=== PATIENT | female | born 1985 | race Caucasian/White ===

== ENCOUNTER 2023-02-06 22:30 | Day surgery (SDC) | payer BC, SELFPAY ==
--- NOTE | ~2023-02-06 | US_ITS ---
EXAMINATION: PELVIC ULTRASOUND - CLINICAL INFORMATION: History vaginal bleeding. Evaluate for torsion. Positive hCG. COMPARISON: None TECHNIQUE: Transabdominal and transvaginal imaging of the uterus was performed utilizing ervin scale and color doppler technique, with spectral analysis. FINDINGS: Small focus of fluid adjacent to the thickened and ill-defined endometrium. This focus measures 5.0 mm, which if traffic representative of a gestational sac would correspond to gestational age of 5 weeks, 0 days. No yolk sac or pole is identified. Left ovary not seen. Right ovary normal in size and appearance measuring 2.9 x 2.6 x 2.4 cm. Normal arterial and venous waveforms present within the right ovary. No free fluid. US/US OB pelvic and transvaginal IMPRESSION: Heterogeneous ill-defined endometrium with nonspecific focus of fluid along the left lateral aspect of the endometrium, entirely nonspecific possibly traffic representative of a pseudogestational sac or gestational sac. In the case of the latter, this would correspond to a gestational age of 5 weeks, 0 days. Regarding the ill-defined endometrium, it is possible that this represent adenomyosis or leiomyomatous change. Incomplete with retained products of conception is also a consideration. Please correlate with serial hCG levels and short interval follow-up pelvic ultrasound in one week, or sooner if clinically indicated.
--- NOTE | ~2023-02-06 | US_ITS ---
EXAMINATION: PELVIC ULTRASOUND - CLINICAL INFORMATION: History vaginal bleeding. Evaluate for torsion. Positive hCG. COMPARISON: None TECHNIQUE: Transabdominal and transvaginal imaging of the uterus was performed utilizing ervin scale and color doppler technique, with spectral analysis. FINDINGS: Small focus of fluid adjacent to the thickened and ill-defined endometrium. This focus measures 5.0 mm, which if service support representative of a gestational sac would correspond to gestational age of 5 weeks, 0 days. No yolk sac or pole is identified. Left ovary not seen. Right ovary normal in size and appearance measuring 2.9 x 2.6 x 2.4 cm. Normal arterial and venous waveforms present within the right ovary. No free fluid. US/US pelvic ovarian doppler IMPRESSION: * Heterogeneous ill-defined endometrium with nonspecific focus of fluid along the left lateral aspect of the endometrium, entirely nonspecific possibly service support representative of a pseudogestational sac or gestational sac. In the case of the latter, this would correspond to a gestational age of 5 weeks, 0 days. Regarding the ill-defined endometrium, it is possible that this represent adenomyosis or leiomyomatous change. Incomplete with retained products of conception is also a consideration. Please correlate with serial hCG levels and short interval follow-up pelvic ultrasound in one week, or sooner if clinically indicated.
[2023-02-06 22:33] VITALS: BP 158/75; PULSE 87; RESP 18; TEMP 36.6; O2SAT 99; BMI 29.0
[2023-02-06 22:50] LABS: MANUAL DIFF FLAG NO
[2023-02-06 22:55] LABS: Basophils Percent Auto 0.2 % (0-2); Eosinophils Absolute Auto 0.1 X10*3/uL (0.0-0.4); Eosinophils Percent Auto 0.4 % (0-4); Hematocrit 27.5 % (37.0-47.0); Hemoglobin 7.3 g/dl (12.0-16.0); Imm Gran Pct Auto 0.5 % (0.0-0.4); Lymphocytes Absolute Auto 0.7 X10*3/uL (1.2-4.9); Mean Corpuscular HGB Conc 26.5 g/dl (31.0-35.0); Mean Corpuscular Hemoglobin 17.5 pg (27.0-33.0); Mean Corpuscular Volume 66.1 fL (80.0-98.0); Mean Platelet Volume 8.7 fL (9.4-12.3); Monocytes Absolute Auto 1.1 X10*3/uL (0.1-1.2); Monocytes Percent Auto 5.9 % (2-11); Neutrophils Absolute Auto 16.3 x10*3/uL (2.0-8.3); Platelet Count 320 X10*3/uL (160-400); Red Blood Count 4.16 X10*6/uL (4.20-5.50); Red Cell Distribution Width 18.7 % (11.0-16.0); White Blood Count 18.3 X10*3/uL (4.8-10.8)
[2023-02-06 23:09] LABS: Anion Gap 12 (12-20); Blood Urea Nitrogen 13 mg/dL (9-16); Calcium 9.1 mg/dL (8.4-10.2); Carbon Dioxide 26 mmol/L (22-29); Chloride 106 mmol/L (96-108); Creatinine Clr Calc Pharmacy 134.6; Estimated Glomerular Filt Rate > 60; Glucose Random 125 mg/dL (60-115); Sodium 140 mmol/L (135-145)
[2023-02-06 23:55] VITALS: BP 129/60; PULSE 77; RESP 18; TEMP 37.2; O2SAT 99
--- NOTE | 2023-02-06 23:55 | ED_ITS ---
HPI - Female Genitourinary General Chief complaint: OB Stated complaint: bleeding heavily from period, SOB Time Seen by Provider: 02/06/23 23:53 Source: patient Mode of arrival: ambulatory Limitations: no limitations History of Present Illness HPI Narrative: 37-year-old female A1 presents with complaints of severe lower abdominal pain, vaginal bleeding, fatigue, malaise, nausea, vomiting, near syncopal episod es x3 days. Patient reports lower abdominal cramping severe in nature worse to RLQ. Patient reports heavy vaginal bleeding, patient is soaking through multiple pads a day, completely, saturated through 3 pads the past few hours. Reports passing a huge dark red blood clot. Patient tells me she is not on control and she does not think this is are normal. Because it came early. Patient does not think she is , not on control however. Related Data Allergies Allergy/AdvReac Type Severity Reaction Status Date / Time Unable to Assess Allergy Unverified 02/06/23 23:53 Review of Systems Review of Systems: Constitutional : No Fever, No Chills ENT/Mouth : No sore throat, No Rhinorrhea Eyes: No Eye Pain, No Redness Cardiovascular : No Chest Pain, No SOB Respiratory : No Cough, No Sputum, No Wheezing Gastrointestinal : positive Nausea, No Vomiting, No Diarrhea, + abdominal pain, Genitourinary : positive irregular bleeding, No Dysuria, No Urinary Frequency, + pelvic pain Musculoskeletal : No Myalgias Skin : No rash Neuro : No Weakness, No Headache Psych : No Anxiety/Panic, No Depression Heme/Lymph: No bruising, No Lymphadenopathy Endocrine : No Polyuria, No Polydipsia All other systems reviewed and are negative Yes all other systems are reviewed and are negative [facility] Past Medical History Attestation statement: The following information was validated with the patient. Source: old records reviewed and nursing notes reviewed Social History Social History Advance Directives: No Advance Directives Information Provided: No Physical Exam Vital Signs: Vital Signs: Last Vital Signs Temp 98.9 F 02/06/23 23:55 Pulse 77 02/06/23 23:55 Resp 18 02/06/23 23:55 BP 129/60 02/06/23 23:55 Pulse Ox 99 02/06/23 23:55 O2 Del Method Room Air 02/06/23 23:55 BMI result Body Mass Index 29.0 vss Appearance: Alert.? Oriented X3.? No acute distress.? Patient appears very uncomfortable Head: Normocephalic, atraumatic, no step-offs or deformities Eyes: Pupils equal, round and reactive to light.? CVS: Normal heart rate and rhythm.? Pulses normal.? Respiratory: No respiratory distress.? Breath sounds normal.? Abdomen: Soft and nontender.? Skin: Skin warm and dry.? Normal skin color.? Normal skin turgor.? Extremities: No lower extremity edema.? No calf ttp. 5/5 strength to bilateral upper and lower extremities Sensative: Large amount of bright red blood in vaginal canal with large clots. Cervical os may be slightly open and there is evident bleeding coming from the cervical os. Significant cervical motion tenderness bilaterally worse on the right-hand side. Neuro: Oriented X 3.? No motor deficit.? No sensory deficit. CN 2-12 intact Course Reevaluation(s) Reevaluation #1: Patient's CBC with elevated white blood cell count, and acute blood loss anemia likely secondary to vaginal bleeding, hemoglobin 7.3, repeat hemoglobin 7.2, hematocrit 27.5 initially now 26.6. Chemistry with no acute electrolyte abnormalities requiring intervention. Beta hCG of 704. Ultrasound was called in for a stat ultrasound of ovarian Doppler in pelvic and transvaginal. Patient evidently uncomfortable ordered morphine, Zofran and fluids. Due to patient's microcytic anemia suspected to be secondary to acute vaginal bleeding will order 2 units of packed red blood cells, type and screen pending. ABO Rh also pending. Time: 00:33 Reevaluation #2: Patient will likely need suction D&C Time: 00:41 Medications Administered Generic Name Dose Route Start Last Admin Trade Name Freq PRN Reason Stop Dose Admin Sodium Chloride 1,000 mls @ 999 mls/hr 02/07/23 00:30 02/07/23 00:31 Ns IV 02/07/23 01:30 999 mls/hr .Q1H1M LEBRON Administration Discontinued Medications Generic Name Dose Route Start Last Admin Trade Name Freq PRN Reason Stop Dose Admin Morphine Sulfate 4 mg 02/07/23 00:25 02/07/23 00:30 Morphine Sulfate 4 Mg/Ml Cartridge IVPUSH 02/07/23 00:26 4 mg ONCE ONE Administration Protocol Ondansetron HCl 4 mg 02/07/23 00:25 02/07/23 00:30 Ondansetron Hcl 4 Mg/2 Ml Vial IVPUSH 02/07/23 00:26 4 mg ONCE ONE Administration Medical Decision Making Medical Decision Making [facility] Narrative: 0614 37-year-old female presents with heavy vaginal bleeding for the past 3 days. History of heavy menses however bleeding more than usual. Physical exam significant forLarge amount of bright red blood in vaginal canal with large clots. Cervical os may be slightly open and there is evident bleeding coming from the cervical os. Significant cervical motion tenderness bilaterally worse on the right-hand side. Concerns for miscarriage versus ruptured ovarian cyst versus menometrorrhagia menorrhagia. Will rule out miscarriage, torsion, ectopic . Will also rule out electrolyte abnormalities, acute blood loss anemia. Unlikely this is an acute abdomen. Low suspicion for appendicitis. Plan labs, urine, hCG, ultrasound pelvic and transvaginal. Patient may require transfusion. Differential Diagnosis Differential Diagnoses: The differential diagnosis associated with the presentation includes Concerns for miscarriage versus ruptured ovarian cyst versus menometrorrhagia menorrhagia. Will rule out miscarriage, torsion, ectopic . Will also rule out electrolyte abnormalities, acute blood loss anemia. Unlikely this is an acute abdomen. Low suspicion for appendicitis. Admission/Observation Consideration of admission/observation: Escalation of care including admission/observation considered Possible Consult Healthcare Provider Management of the patient was discussed with: Yarn Twister Lab Data [facility] Lab Attestation statement: I reviewed the patient's lab results. 02/06/23 22:44 02/06/23 22:44 Labs: Lab Results 02/06/23 02/06/23 02/07/23 Range/Units 22:44 22:44 00:22 WBC 18.3 H 17.5 H (4.8-10.8) X10*3/uL RBC 4.16 L 4.06 L (4.20-5.50) X10*6/uL Hgb 7.3 L 7.2 L (12.0-16.0) g/dl Hct 27.5 L 26.6 L (37.0-47.0) % MCV 66.1 L 65.5 L (80.0-98.0) fL MCH 17.5 L 17.7 L (27.0-33.0) pg MCHC 26.5 L 27.1 L (31.0-35.0) g/dl RDW 18.7 H 18.7 H (11.0-16.0) % Plt Count 320 307 (160-400) X10*3/uL MPV 8.7 L 8.5 L (9.4-12.3) fL Immature Gran % (Auto) 0.5 H 0.5 H (0.0-0.4) % Neut % (Auto) 89.0 H 91.5 H (45-73) % Lymph % (Auto) 4.0 L 3.4 L (20-40) % [place] % (Auto) 5.9 4.2 (2-11) % Eos % (Auto) 0.4 0.2 (0-4) % Baso % (Auto) 0.2 0.2 (0-2) % Lymph # (Auto) 0.7 L 0.6 L (1.2-4.9) X10*3/uL [place] # (Auto) 1.1 0.7 (0.1-1.2) X10*3/uL Eos # (Auto) 0.1 0.0 (0.0-0.4) X10*3/uL Baso # (Auto) 0.0 0.0 (0.0-0.2) X10*3/uL Abs Immat Gran (auto) 0.10 H 0.09 H (0.00-0.03) X10*3/uL Absolute Neuts (auto) 16.3 H 16.0 H (2.0-8.3) x10*3/uL Absolute Nucleated RBC 0.000 0.000 (0.0-0.012) X10*3/uL Nucleated RBC % (auto) 0.0 0.0 (0.0-0.2) /100WBC Sodium 140 (135-145) mmol/L Potassium 4.0 (3.3-5.1) mmol/L Chloride 106 (96-108) mmol/L Carbon Dioxide 26 (22-29) mmol/L Anion Gap 12 (12-20) BUN 13 (9-16) mg/dL Creatinine 0.61 (0.5-1.4) mg/dL Estim Creat Clear Calc 134.6 Estimated GFR > 60 Random Glucose 125 H (60-115) mg/dL Calcium 9.1 (8.4-10.2) mg/dL Beta HCG, Quant 704 mIU/mL Crossmatch 02/07/23 Range/Units 00:22 WBC (4.8-10.8) X10*3/uL RBC (4.20-5.50) X10*6/uL Hgb (12.0-16.0) g/dl Hct (37.0-47.0) % MCV (80.0-98.0) fL MCH (27.0-33.0) pg MCHC (31.0-35.0) g/dl RDW (11.0-16.0) % Plt Count (160-400) X10*3/uL MPV (9.4-12.3) fL Immature Gran % (Auto) (0.0-0.4) % Neut % (Auto) (45-73) % Lymph % (Auto) (20-40) % [place] % (Auto) (2-11) % Eos % (Auto) (0-4) % Baso % (Auto) (0-2) % Lymph # (Auto) (1.2-4.9) X10*3/uL [place] # (Auto) (0.1-1.2) X10*3/uL Eos # (Auto) (0.0-0.4) X10*3/uL Baso # (Auto) (0.0-0.2) X10*3/uL Abs Immat Gran (auto) (0.00-0.03) X10*3/uL Absolute Neuts (auto) (2.0-8.3) x10*3/uL Absolute Nucleated RBC (0.0-0.012) X10*3/uL Nucleated RBC % (auto) (0.0-0.2) /100WBC Sodium (135-145) mmol/L Potassium (3.3-5.1) mmol/L Chloride (96-108) mmol/L Carbon Dioxide (22-29) mmol/L Anion Gap (12-20) BUN (9-16) mg/dL Creatinine (0.5-1.4) mg/dL Estim Creat Clear Calc Estimated GFR Random Glucose (60-115) mg/dL Calcium (8.4-10.2) mg/dL Beta HCG, Quant mIU/mL Crossmatch See Detail Independent Interpretation I performed an independent interpretation of an: Ultrasound Radiology Impression Discussion of test interpretation with radiology: I have reviewed the radiologist's reading. Core Measures AMI core measures followed: Yes Measure exclusions: not indicated Critical Care Time Critical Care Time Critical Care Time: Yes Total Critical Care Time: 45 Attestation: I attest to this time spent taking care of the patient, obtaining history, physical, reviewing labs, imaging, speaking to my attending, speaking to kylah allen. Discharge Plan Discharge Clinical Impression: Miscarriage, Episode of heavy vaginal bleeding, Pelvic pain Patient Disposition: Home, Self-Care Instructions: Miscarriage (ED), Dysfunctional Uterine Bleeding (ED) Additional Instructions: Take your medications as prescribed. If you were prescribed antibiotics today, it is important that you take your medication to their entirety, do not skip any doses, do not finish them early. Follow-up with your primary care provider this week. Return to the emergency department with new or worsening symptoms. Such as fevers, chills, chest pain, shortness of breath, nausea, vomiting, dizziness, headache, vision changes, lethargy In case of emergency call 911 Referrals: Physician,None [Primary Care Provider] - 2 days Fidel Turcios MD [Physician] - 1 day Stand Alone Forms: Work/School Release
--- NOTE | 2023-02-06 23:56 | MHC.EDTECH ---
Patient vitals are stable ED Rounds are done Unable to provide a urine sample will continue to monitor
[2023-02-07 00:13] LABS: HCG Quantitative 704 mIU/mL
[2023-02-07 00:29] LABS: Basophils Percent Auto 0.2 % (0-2); Eosinophils Percent Auto 0.2 % (0-4); Hematocrit 26.6 % (37.0-47.0); Hemoglobin 7.2 g/dl (12.0-16.0); Imm Gran Abs Auto 0.09 X10*3/uL (0.00-0.03); Imm Gran Pct Auto 0.5 % (0.0-0.4); Lymphocytes Absolute Auto 0.6 X10*3/uL (1.2-4.9); Lymphocytes Percent Auto 3.4 % (20-40); MANUAL DIFF FLAG SCAN; Mean Corpuscular HGB Conc 27.1 g/dl (31.0-35.0); Mean Corpuscular Hemoglobin 17.7 pg (27.0-33.0); Mean Corpuscular Volume 65.5 fL (80.0-98.0); Mean Platelet Volume 8.5 fL (9.4-12.3); Monocytes Absolute Auto 0.7 X10*3/uL (0.1-1.2); Monocytes Percent Auto 4.2 % (2-11); Neutrophils Percent Auto 91.5 % (45-73); Platelet Count 307 X10*3/uL (160-400); Red Blood Count 4.06 X10*6/uL (4.20-5.50); Red Cell Distribution Width 18.7 % (11.0-16.0); SCAN SMEAR FLAG 1; White Blood Count 17.5 X10*3/uL (4.8-10.8)
[2023-02-07] MEDS: ondansetron HCL 4 MG/2 ML VIAL IVPUSH (00:30)
[2023-02-07] MEDS: Morphine Sulfate 4 MG/ML CARTRIDGE IVPUSH (00:30)
[2023-02-07] MEDS: 0.9 % Sodium Chloride 1,000 ML 999 ML IV (00:31)
--- NOTE | 2023-02-07 00:43 | PM.GYNCN ---
SENIOR ACCOUNT MANAGER - CN: HPI Data of Consult Consult date: 02/07/23 Primary Care Provider: None Physician Consult Narrative Narrative: Late entry note (EMR was down) I was consulted on Ghazala Whitfield who is a 37 year old female presented to the emergency room complaining of heavy vaginal bleeding associated with pelvic cramping and passage of large amount of blood clots for the last few hours prior to presentation. The patient reports that she passed out. In the emergency room on presentationm H&H was 7.3/27.5 repeated dropped to 7.2/26.6 within 1 hour and half, hCG was 704, Rh negative, antibody screen negative. 1 unit of packed RBCs was started, Pelvic ultrasound showed the following: Heterogeneous ill-defined endometrium with nonspecific focus of fluid along the left lateral aspect of the endometrium, entirely nonspecific possibly leather goods sales representative of a pseudogestational sac or gestational sac. In the case of the latter, this would correspond to a gestational age of 5 weeks, 0 days. Regarding the ill-defined endometrium, it is possible that this represent adenomyosis or leiomyomatous change. Incomplete with retained products of conception is also a consideration. Please correlate with serial hCG levels and short interval follow-up pelvic ultrasound in one week, or sooner if clinically indicated. cc:: CC: SUPERVISOR WOUND - Review of Systems Review of Systems ROS Unobtainable: All systems reviewed & are unremarkable except as noted in HPI and below Cardiovascular: Denies Palpatations, Loss of consciousness or Chest pain Respiratory: Denies Cough, Wheezing or Shortness of breath Musculoskeletal: Denies Low back pain Gastrointestinal: Denies Heartburn, Constipation, Diarrhea, Nausea or Vomiting Genitourinary: Denies Pain with urination, Burning with urination or Urinary frequency Neurological: Denies Migranes Psychological: Denies Depression OB [facility] Social History Social History Advance Directives: No Advance Directives Information Provided: No Meds Allergies Allergy/AdvReac Type Severity Reaction Status Date / Time Unable to Assess Allergy Unverified 02/06/23 23:53 Active Medications: Current Medications Sodium Chloride (Ns) 1,000 mls @ 999 mls/hr IV .Q1H1M LEBRON Stop: 02/07/23 01:30 Last Admin: 02/07/23 00:31 Dose: 999 mls/hr SENIOR ACCOUNT MANAGER Physical Exam Vitals Vital signs: Temp Pulse Resp BP Pulse Ox O2 Del Method 98.9 F 77 18 129/60 99 Room Air 02/06/23 23:55 02/06/23 23:55 02/06/23 23:55 02/06/23 23:55 02/06/23 23:55 02/06/23 23:55 BMI result Body Mass Index 29.0 Constitutional General Appearance: Healthy appearing, Well-nourished and Well-developed Psychiatric Mood and Affect: active and alert, normal mood and normal affect Skin Appearance: No rashes and No lesions Lungs Respiratory Effort: No intercostal retractions Auscultation: Clear to auscultation Cardiovascular Auscultation: RRR Abdomen Auscultation/Inspection/Palpation: Normal bowel sounds, Soft, Non-distended and No tenderness Female Genitalia (Pelvic) Vulva: No lesions Vagina: Nontender Cervix: No cervical motion tenderness Uterus: Enlarged Adnexa/Parametria: Adnexal Tenderness: None Additional Comments: Blood per vagina, active vaginal bleeding, cervix open SENIOR ACCOUNT MANAGER - Results Labs 02/07/23 00:22 02/06/23 22:44 Labs: Short CBC 02/06/23 02/07/23 Range/Units 22:44 00:22 WBC 18.3 H 17.5 H (4.8-10.8) X10*3/uL Hgb 7.3 L 7.2 L (12.0-16.0) g/dl Hct 27.5 L 26.6 L (37.0-47.0) % Plt Count 320 307 (160-400) X10*3/uL BMP 02/06/23 22:44 Sodium 140 Potassium 4.0 Chloride 106 Carbon Dioxide 26 BUN 13 Creatinine 0.61 Calcium 9.1 Imaging US - abdomen: Radiologist's impression: ITS Impressions Doppler Study Ultrasound 02/07/23 00:11 IMPRESSION: * Heterogeneous ill-defined endometrium with nonspecific focus of fluid along the left lateral aspect of the endometrium, entirely nonspecific possibly leather goods sales representative of a pseudogestational sac or gestational sac. In the case of the latter, this would correspond to a gestational age of 5 weeks, 0 days. Regarding the ill-defined endometrium, it is possible that this represent adenomyosis or leiomyomatous change. Incomplete with retained products of conception is also a consideration. Please correlate with serial hCG levels and short interval follow-up pelvic ultrasound in one week, or sooner if clinically indicated. Pelvic/Transvag US 02/07/23 01:40 IMPRESSION: Heterogeneous ill-defined endometrium with nonspecific focus of fluid along the left lateral aspect of the endometrium, entirely nonspecific possibly leather goods sales representative of a pseudogestational sac or gestational sac. In the case of the latter, this would correspond to a gestational age of 5 weeks, 0 days. Regarding the ill-defined endometrium, it is possible that this represent adenomyosis or leiomyomatous change. Incomplete with retained products of conception is also a consideration. Please correlate with serial hCG levels and short interval follow-up pelvic ultrasound in one week, or sooner if clinically indicated. Assessment and Plan (1) Incomplete : Status: Acute Plan Discussed with the patient the result of the ultrasound, her clinical situation with heavy vaginal bleeding, hypotension pointing towards incomplete , recommended suction D&C, a more detailed discussion about the procedure was carried on with the patient including the technique, risks including but not limited to : bleeding, infection, uterine perforation, injury to blood vessels, bowels, ureters, bladder, possible need for blood transfusion with all its risks ( HIV, Hep b or C, anaphylaxis reactions), possible need for laparoscopy, laparotomy, or hysterectomy, possible , thromboembolic events, possibility of a negative impact on future fertility because of scar tissue development inside the uterus; alternatives of this option were discussed with the patient including but not limited to, medical termination of or doing nothing, not recommended. The patient decided to go ahead with Suction D&C and signed the consent. All questions answered, the patient verbalized understanding and agreed with the plan. Doxycycline 200 mg p.o. preop ordered. Ultrasound notified. Rh negative, Antibody screen was negative, ordered RhoGAM 300 mcg IM postop. Instructions given the patient to schedule a 2 week postoperative appointment. This note was generated with a voice recognition program. Some errors may have been overlooked during the review of this note. Sometimes these errors may affect the content or meaning of a given sentence. Time Spent With Patient Time: Total time managing care of this patient today ____ minutes.
--- NOTE | 2023-02-07 00:49 | PC.NURSE ---
late entry - iv line placed, type & screen sent, pt medicated per mar for pain and nausea. pt A&Ox4, speaking clear full sentences, appears extremely uncomfortably reporting 10/10 lower abdominal pain/discomfort. pt tearful and anxious. Tasha GONZALES contacting obgyn regarding excess bleeding & +hcg. will CTM
[2023-02-07] MEDS: Rho(D) Immune Globulin 300 MCG SYRINGE IM (03:10)
[2023-02-07 03:15] VITALS: RESP 20
[2023-02-07] MEDS: fentaNYL citrate/PF 100 MCG/2 ML VIAL 50 MCG IV ×2 (03:15→03:55)
[2023-02-07 03:55] VITALS: RESP 18
[2023-02-07 04:32] LABS: SLIDE REVIEW VERIFIED
[2023-02-07 04:37] LABS: Hematocrit 28.5 % (37.0-47.0); Hemoglobin 7.9 g/dl (12.0-16.0)
--- NOTE | 2023-02-07 06:19 | W.PM.OPN ---
Operative Note Operative Note Date of Service: 02/07/23 Narrative: Preop diagnosis: Incomplete AB, hypotension heavy bleeding Operation: suction D and C Postop diagnosis: The same EBL: Minimal Anesthesia: MAC School Psychology Specialist: None Pathology: Products of conception Procedure: The patient was put in a dorsal distal mid position was scrubbed and draped in the usual sterile fashion. A sterile speculum was inserted inside the patient's vagina the anterior lip of the cervix was grasped with single-tooth tenaculum the cervix was dilated up to 7 mm. Under ultrasonographic guidance flexible 7. Suction tip was introduced inside the patient ran cavity till the fundus was hit then turning the suction 360 degrees around products of conception was sucked out toward the uterine cavity. The suction tip was taken out of the patient uterine cavity sharp curettings was followed in 4 quadrants of the uterus till a gritty feeling was felt. The suction tip was reintroduced under ultrasonographic guidance and intrauterine blood was sucked. The suction tip was taken out. Single-tooth tenaculum was removed hemostasis assured using pressure. The patient tolerated the procedure well and was transferred to the PACU in a stable condition.
--- NOTE | 2023-02-07 06:20 | PM.OP ---
Brief Operative Note Date of Service: 02/07/23 Pre-op diagnosis: Incomplete , heavy bleeding , an episode of hypotension Post-op diagnosis: same Procedure: Suction D&C Surgeon: Fidel Turcios MD Anesthesia: GLMA Was an Water Quality Control Engineer used for this Procedure?: No Estimated blood loss (mL): 10 Pathology: other (Products of conception) Condition: stable Disposition: PACU
== END 2023-02-07 16:32 | disposition home or self-care (01) ==
LOC: HO.ED 02-07 05:20 → HO.SSS 02-07 06:40
PROVIDERS: Physician Assistant; Emergency Provider Emergency Medicine; Visit Provider Obstetrics & Gynecology
PROC: 0UDB8ZZ Extraction of Endometrium, Via Natural or Artificial Opening Endoscopic (ICD-10-PCS; CPT 58558; principal; 2023-02-07 07:30)
DX: O02.1 Missed abortion (principal); O03.1 Delayed or excessive hemorrhage following incomplete spontaneous abortion; O26.51 Maternal hypotension syndrome, first trimester; O26.91 Pregnancy related conditions, unspecified, first trimester; O09.521 Supervision of elderly multigravida, first trimester; R10.2 Pelvic and perineal pain; Z3A.01 Less than 8 weeks gestation of pregnancy
CPT/HCPCS: 59812; 36415; 76801; 76817; 76998; 80048; 84702; 85014; 85018; 85025; 86850; 86900; 86901; 86923; 88305; 93975; 96374; 96375; 99283; 99285; J1100; J2250; J2270; J2405; J2590; J3010; P9016

== ENCOUNTER 2023-02-08 14:24 | Outpatient (REF) | payer BC, SELFPAY ==
[2023-02-08 16:33] LABS: HCG Quantitative 167 mIU/mL
== END 2023-02-08 14:25 | disposition home or self-care (01) ==
LOC: HO.LAB 14:24
PROVIDERS: Visit Provider Obstetrics & Gynecology
DX: O03.4 Incomplete spontaneous abortion without complication (principal)
CPT/HCPCS: 36415; 84702

== ENCOUNTER 2023-02-20 15:17 | Outpatient (REF) | payer BC, SELFPAY ==
[2023-02-20 16:03] LABS: Hematocrit 35.3 % (37.0-47.0); Hemoglobin 9.7 g/dl (12.0-16.0); Mean Corpuscular HGB Conc 27.5 g/dl (31.0-35.0); Mean Corpuscular Volume 72.9 fL (80.0-98.0); Mean Platelet Volume 8.8 fL (9.4-12.3); Platelet Count 501 X10*3/uL (160-400); Red Blood Count 4.84 X10*6/uL (4.20-5.50); Red Cell Distribution Width 23.8 % (11.0-16.0); White Blood Count 7.2 X10*3/uL (4.8-10.8)
[2023-02-20 16:33] LABS: HCG Quantitative 3 mIU/mL
== END 2023-02-20 15:18 | disposition home or self-care (01) ==
LOC: HO.LAB 15:17
PROVIDERS: Visit Provider Obstetrics & Gynecology
DX: O03.4 Incomplete spontaneous abortion without complication (principal)
CPT/HCPCS: 36415; 84702; 85027

== ENCOUNTER → 2023-02-21 12:22 | Outpatient (BNVA) | payer BC, SELFPAY | PROVIDERS: Visit Provider Obstetrics & Gynecology ==

== ENCOUNTER 2023-03-06 14:49 | Outpatient (REF) | payer BC, SELFPAY | END 2023-03-06 14:50 | disposition home or self-care (01) | LOC: HO.LNP 14:49 | PROVIDERS: Visit Provider Obstetrics & Gynecology | DX: Z30.430 Encounter for insertion of intrauterine contraceptive device (principal) | CPT/HCPCS: 58300; J7298 ==

== ENCOUNTER 2023-03-06 15:36 | Outpatient (REF) | payer BC, SELFPAY ==
[2023-03-06 17:11] LABS: HCG Quantitative < 2 mIU/mL
[2023-03-07 05:39] LABS: CT PCR NOT DETECTED (Not Detect.); NG PCR NOT DETECTED (Not Detect.)
== END 2023-03-06 15:37 | disposition home or self-care (01) ==
LOC: HO.LAB 15:36
PROVIDERS: Visit Provider Obstetrics & Gynecology
DX: O03.4 Incomplete spontaneous abortion without complication (principal); Z20.2 Contact with and (suspected) exposure to infections with a predominantly sexual mode of transmission
CPT/HCPCS: 0353U; 36415; 84702

== ENCOUNTER 2023-04-04 14:06 | Outpatient (AMB) | payer BC, SELFPAY ==
--- NOTE | 2023-04-04 14:08 | A.OFFVIS_ITS ---
Intake Vital Signs 04/04/23 14:09 Height 5 ft 6 in Weight 149 lb BMI 24.0 BP 140/68 H Blood Pressure Location Lt brachial Position Sitting Intake Visit Reasons: IUD Check Blow Mold Technician Required: No Accompanied by: Self / Same As Patient Allergies Seasonal Allergies Adverse Reaction (Mild, Verified 04/04/23 14:16) Sneezing Is last menstrual period known: Yes Last menstrual period: 04/04/23 HPI HPI Comments History of Present Illness Details The patient is presenting for IUD check after 1 st period following IUD insertion. The patient has no complaints. [facility] Surgical History History of D&C Female Reproductive History Menstrual Date of last menstrual period: 04/04/23 Review of Systems Const All systems reviewed & are unremarkable except as noted in HPI and below Physical Exam Vital Signs: Last Vital Signs BP 140/68 H 04/04/23 14:09 BMI result Body Mass Index 24.0 General: Yes no CVA tenderness External Female Exam: normal external appearance and normal appearance of the urethra Speculum Exam - Vagina: normal appearance of the vagina, normal palpation, no lesions and no masses Speculum Exam - Cervix: normal appearance of the cervix, normal palpation, no lesions, no masses, nontender and Other cervical findings present (IUD thread seen) Bimanual exam- vagina & uterus: normal bimanual exam, normal palpation, uterine size normal, normal palpation, uterine shape normal, No Cervical tenderness present and non-tender Bimanual Exam- Adnexa, other: normal adnexae Back/Spine/Pelvis Back: no CVA tenderness Assessment & Plan Assessment & Plan (1) IUD check up: Code(s): Z30.431 - Encounter for routine checking of intrauterine contraceptive device Plan: UPT done in the office was negative. Discussed with the patient the finding on physical exam, IUD string in place, the patient was reassured. Instructions given to patient to call in case of temperature above 100.4, severe cramping/pelvic pain, abnormal discharge or abnormal uterine bleeding or if she misses her. Otherwise follow-up at her annual exam appointment. All questions answered, the patient verbalized understanding. Coding Level of Care Code Est Pt Level 3 (46880) Diagnoses IUD check up Z30.431
--- NOTE | 2023-04-04 14:08 | MHC.OFFVIS ---
Intake Vital Signs 04/04/23 14:09 Height 5 ft 6 in Weight 149 lb BMI 24.0 BP 140/68 H Blood Pressure Location Lt brachial Position Sitting Intake Visit Reasons: IUD Check Allergies Seasonal Allergies Adverse Reaction (Mild, Verified 04/04/23 14:16) Sneezing [facility] Surgical History History of D&C Physical Exam Vital Signs: BMI result Body Mass Index 24.0 Coding Diagnoses
[2023-04-04 14:09] VITALS: BP 140/68; BMI 24.0
== END 2023-04-04 14:21 | disposition home or self-care (01) ==
LOC: HO.HWS 14:06
PROVIDERS: Visit Provider Obstetrics & Gynecology
DX: Z30.431 Encounter for routine checking of intrauterine contraceptive device (principal)
CPT/HCPCS: 99213

== ENCOUNTER → 2023-04-04 14:06 | Outpatient (BNVA) | payer BC, SELFPAY | PROVIDERS: Visit Provider Obstetrics & Gynecology ==

== ENCOUNTER 2023-08-06 09:54 | Outpatient (REF) | payer BC, SELFPAY ==
[2023-08-09 08:53] LABS: HPV mRNA E6/E7 rflx Not Detected (Not Detected)
== END 2023-08-06 09:55 | disposition home or self-care (01) ==
LOC: HO.LNP 09:54
PROVIDERS: Visit Provider Obstetrics & Gynecology
DX: Z01.419 Encounter for gynecological examination (general) (routine) without abnormal findings (principal); Z11.51 Encounter for screening for human papillomavirus (HPV); N93.9 Abnormal uterine and vaginal bleeding, unspecified
CPT/HCPCS: 87624; 88142

== ENCOUNTER 2023-08-06 09:54 | Outpatient (AMB) | payer BC, SELFPAY ==
[2023-08-06 10:02] VITALS: BP 124/70; BMI 23.6
--- NOTE | 2023-08-06 10:02 | A.OFFVIS_ITS ---
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 Complaining of heavy menstrual cycles associated with pelvic cramping. 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 Sexually active: Yes Sexual orientation: Straight/Heterosexual Gender identity: Female Female Reproductive History Menstrual control method: progestin IUCD Total pregnancies: 4 Full term: 2 Number of Living Children: 2 Ab induced: 1 Ab spontaneous: 1 Review of Systems Const All systems reviewed & are unremarkable except as noted in HPI and below Card Reports as per HPI Resp Reports as per HPI GI Reports as per HPI and Reports no additional complaints Reports as per HPI Physical Exam Vital Signs: BMI result Body Mass Index 23.6 Const General: cooperative, healthy appearing and comfortable Chest Chest palpation & inspection: normal inspection of the chest and normal palpatio n of entire chest wall Breast/axilla inspection: normal inspection of the breasts and normal inspection of the axillae Breast/axilla palpation: normal palpation of the breasts, normal palpation of the axillae and no axillary lymphadenopathy Resp Effort & Inspection: normal respiratory effort Auscultation: clear to auscultation bilaterally Percussion: percussion normal Cardio Palpation: normal PMI Rate: regular rate Rhythm: regular rhythm Heart sounds: no murmurs and no rubs Peripheral pulses: Peripheral pulses 2+ throughout GI Inspection: Yes normal to inspection Palpation (GI): Soft to palpation, nontender, no guarding, not rigid and No hepatosplenomegaly present Percussion: Yes normal to percussion Auscultation: normal bowel sounds Rectal Exam - Female: deferred General: Yes bladder normal to palpation External Female Exam: No lesion Speculum Exam - Vagina: normal appearance of the vagina, normal palpation, normal vaginal discharge and not erythematous Speculum Exam - Cervix: normal appearance of the cervix and normal palpation Bimanual exam- vagina & uterus: normal bimanual exam, normal palpation, uterine size normal, bladder normal to palpation, consistency normal and normal palpation Bimanual Exam- Adnexa, other: normal adnexae, no masses and no tenderness Assessment & Plan Assessment & Plan (1) Well woman exam: Code(s): Z01.419 - Encounter for gynecological examination (general) (routine) without abnormal findings Plan: Cotesting done. Counseled the patient about the recommended dietary allowance of 1000 mg of Calcium & 600 IU of vitamin D. The patient was instructed to perform monthly self-breast exams and to schedule an annual exam in a year; All questions answered and the patient verbalized understanding. Instructed the patient to schedule annual exam in a year (2) IUD strings lost: Code(s): T83.32XA - Displacement of intrauterine contraceptive device, initial encounter Plan: Will order pelvic ultrasound , and treat accordingly instructions given to patient to schedule a pelvic ultrasound and a follow-up appointment. (3) Abnormal uterine bleeding: Code(s): N93.9 - Abnormal uterine and vaginal bleeding, unspecified Plan: Co testing done, GC and chlamydia taken CBC, TSH, prolactin, HCG, and pelvic ultrasound ordered. Discussed with the patient the different causes of abnormal bleeding including thyroid disorders, uterine and ovarian pathology, endometrial hyperplasia, carcinoma and other potential causes. Discussed with the patient the work up including CBC (to r/o anemia), TSH, pelvic Ultrasound, endometrial biopsy to r/o endometrial pathology. All questions answered and the patient verbalized understanding. Instructed the patient to schedule an appointment for an endometrial biopsy in 2 weeks. Orders: Orders US pelvic and transvaginal Today N93.9 - Abnormal uterine and vaginal bleeding, unspecified TSH reflex Free T4 Today N93.9 - Abnormal uterine and vaginal bleeding, unspecified Prolactin Today N93.9 - Abnormal uterine and vaginal bleeding, unspecified HCG Quantitative Today N93.9 - Abnormal uterine and vaginal bleeding, unspecified Complete Blood Count no Diff Today N93.9 - Abnormal uterine and vaginal bleeding, unspecified Coding Level of Care Code Est Pt Level 3 (37538) Est Pt Prev Care 18-39y(18462) Diagnoses Well woman exam Z01.419 IUD strings lost T83.32XA Abnormal uterine bleeding N93.9
== END 2023-08-06 10:23 | disposition home or self-care (01) ==
PROVIDERS: Visit Provider Obstetrics & Gynecology
DX: Z01.419 Encounter for gynecological examination (general) (routine) without abnormal findings (principal); T83.32XA Displacement of intrauterine contraceptive device, initial encounter; N93.9 Abnormal uterine and vaginal bleeding, unspecified
CPT/HCPCS: 99213; 99395

== ENCOUNTER 2023-08-06 10:30 | Outpatient (REF) | payer BC, SELFPAY ==
[2023-08-06 11:10] LABS: Hematocrit 35.5 % (37.0-47.0); Hemoglobin 10.1 g/dl (12.0-16.0); Mean Corpuscular HGB Conc 28.5 g/dl (31.0-35.0); Mean Corpuscular Hemoglobin 20.2 pg (27.0-33.0); Mean Corpuscular Volume 70.9 fL (80.0-98.0); Mean Platelet Volume 9.2 fL (9.4-12.3); Platelet Count 314 X10*3/uL (160-400); Red Blood Count 5.01 X10*6/uL (4.20-5.50); Red Cell Distribution Width 17.4 % (11.0-16.0); White Blood Count 8.2 X10*3/uL (4.8-10.8)
[2023-08-06 12:02] LABS: HCG Quantitative < 2 mIU/mL; TSH reflex Free T4 1.49 uIU/mL (0.32-4.0)
[2023-08-06 15:45] LABS: CT PCR NOT DETECTED (Not Detect.); NG PCR NOT DETECTED (Not Detect.)
[2023-08-07 16:18] LABS: Prolactin 11.3 ng/mL
== END 2023-08-06 10:31 | disposition home or self-care (01) ==
LOC: HO.LAB 10:30
PROVIDERS: Visit Provider Obstetrics & Gynecology
DX: Z01.419 Encounter for gynecological examination (general) (routine) without abnormal findings (principal); N93.9 Abnormal uterine and vaginal bleeding, unspecified; Z20.2 Contact with and (suspected) exposure to infections with a predominantly sexual mode of transmission
CPT/HCPCS: 0353U; 84146; 84443; 84702; 85027

== ENCOUNTER 2023-08-22 13:56 | Outpatient (REF) | payer BC, SELFPAY ==
--- NOTE | ~2023-08-22 | US_ITS ---
EXAMINATION: US PELVIS COMPLETE CLINICAL INFORMATION: Abnormal uterine and vaginal bleeding COMPARISON: Pelvic ultrasound 02/07/2023 TECHNIQUE: Transabdominal and transvaginal imaging was performed. FINDINGS: The uterus is of enlarged and heterogeneous in echo texture without myometrial cystic change measuring 14.7 x 9.7 x 11.9 cm. A regular homogeneous endometrium is identified measuring 1.0 cm. IUD appears low in abutting the endocervical junction rather than the endometrial fundus, which may compromise efficacy. Both ovaries are of normal echogenicity. The right measures 4.4 x 2.2 x 3.3 cm for a volume of 16.4 mL. The left measures 12.1 x 2.2 x 3.4 cm for a volume of 16.2 mL. Possible indeterminant 1.4 x 1.0 x 1.5 cm hypoechoic mass with question of internal vascularity, incompletely evaluated. There is small volume simple pelvic free fluid. US/US pelvic and transvaginal IMPRESSION: 1. IUD appears low in abutting the endocervical junction rather than the endometrial fundus, which may compromise efficacy. 2. Enlarged and heterogeneous uterus which could be seen in the setting of adenomyosis. 3. Possible indeterminant 1.5 cm hypoechoic left ovarian mass with question of internal vascularity, incompletely evaluated. Recommend further evaluation with contrast-enhanced MR pelvis. The findings and recommendations were discussed with Dr. Fidel Turcios by telephone at 08/23/2023 6:08 PM and it was ascertained that the content and urgency of the report was understood at the time of direct communication.
== END 2023-08-22 13:57 | disposition home or self-care (01) ==
LOC: HO.HMGCX 13:56
PROVIDERS: Visit Provider Obstetrics & Gynecology
DX: N93.9 Abnormal uterine and vaginal bleeding, unspecified (principal)
CPT/HCPCS: 76830; 76856

== ENCOUNTER 2023-08-27 14:40 | Outpatient (REF) | payer BC, SELFPAY | END 2023-08-27 14:41 | disposition home or self-care (01) | LOC: HO.LNP 14:40 | PROVIDERS: Visit Provider Obstetrics & Gynecology | DX: Z30.432 Encounter for removal of intrauterine contraceptive device (principal); N93.9 Abnormal uterine and vaginal bleeding, unspecified; T83.32XA Displacement of intrauterine contraceptive device, initial encounter; N83.299 Other ovarian cyst, unspecified side | CPT/HCPCS: 58100; 58301; 81025; 88305 ==

== ENCOUNTER 2023-08-27 14:40 | Outpatient (AMB) | payer BC, SELFPAY ==
--- NOTE | 2023-08-27 14:50 | MHC.OFFVIS ---
Intake Vital Signs 08/27/23 14:58 Height 5 ft 6 in Weight 145 lb 8.081 oz BMI 23.5 BP 110/68 Intake Visit Reasons: IUD removal Visual Coordinator Required: No Information Interpreted: non-clinical & clinical Crematorium Operator: Crematorium Operator Present (Suad MONTALVO) Accompanied by: Self / Same As Patient Allergies Seasonal Allergies Adverse Reaction (Mild, Verified 08/27/23 14:59) Sneezing HPI HPI Comments History of Present Illness Details Presenting for ultrasound follow-up, EMB. H&H was 10.1/35.5, TSH, prolactin, hCG were negative, co testing negative GC/chlamydia Pelvic ultrasound showed the followin. IUD appears low in abutting the endocervical junction rather than the endometrial fundus, which may compromise efficacy. 2. Enlarged and heterogeneous uterus which could be seen in the setting of adenomyosis. 3. Possible indeterminant 1.5 cm hypoechoic left ovarian mass with question of internal vascularity, incompletely evaluated. 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 Sexual orientation: Straight/Heterosexual Gender identity: Female Review of Systems Const All systems reviewed & are unremarkable except as noted in HPI and below Reports as per HPI and Reports no additional complaints GI Reports no additional complaints Reports no additional complaints Physical Exam Vital Signs: Last Vital Signs BP 110/68 08/27/23 14:58 BMI result Body Mass Index 23.5 Office Procedures Endometrial Biopsy Details: The patient was counseled regarding the indication and benefits of endometrial sampling to rule out endometrial pathology including not limited to endometrial hyperplasia or endometrial cancer and others; The alternatives (Either do nothing vs. hysteroscopy D&C) & the risks were discussed with the patient including but not limited: pain, uterine perforation, bleeding, infection, possible injury to bladder, bowel, ureter, possible need for blood transfusion with all its possible risks. The patient verbalized understanding all questions answered and signed consent. Urine test done in the office was negative The patient was placed into the dorsal lithotomy position; a speculum was inserted in the vagina. Using aseptic technique for the procedure, the cervix was cleansed with Betadine. The anterior lip of the cervix was grasped with a single tooth tenaculum. The uterus was sounded to 7 cm with a 4 mm Pipelle was used. Tissues samples were obtained and placed in formalin, in a patient labeled container and sent to the pathology department. At the end of the procedure, there was minimal bleeding noted The patient tolerated the procedure well and was discharged in good condition with the following instructions: Nothing in the vagina until the bleeding stops. No sex until the bleeding stops, to call if any of the following occurs: fever (>100.4), flu-like symptoms, abdominal pain, heavy bleeding, four smelling vaginal discharge. The patient was instructed to schedule a Follow up appointment in 2 weeks to discuss pathology results of the biopsy and treatment options. This note was generated with a voice recognition program. Some errors may have been overlooked during the review of this note. Sometimes these errors may affect the content or meaning of a given sentence. 11380-Hdjacrwnwsx Biopsy IUD Insert/Removal Details Details: Counseling/Consent: After discussing with the patient the risks of the procedure including bleeding, infection, scar tissue formation, , possible injury to blood vessels or nerves, chronic arm pain, blood transfusion, and irregular unpredictable bleeding Alternative options were discussed with the patient including but not limited: Do nothing. The patient signed the consent and agreed with the plan; all questions answered. Urine test was done in the office and was negative Preop dx: Requesting IUD removal Op: IUD removal Post op dx: same EBL= 10 cc Procedure: The patient was put in the dorsal lithotomy position a speculum was inserted in the vagina the IUD thread identified. Using a Ivania clamp the thread was grasped and the IUD pulled out with no complications. The patient tolerated the procedure well and was advised to use a different method for contraception. Discharge instructions: Instructions were given to the pt to call if temp>100.4, abdominal pain heavy vaginal bleeding, n/v occur. The patient verbalized understanding and all questions answered. This note was generated with a voice recognition program. Some errors may have been overlooked during the review of this note. Sometimes these errors may affect the content or meaning of a given sentence. 80670-[facility] Removal Procedure code (CPT) selection complete Results AMB Test Urine AMB Test Urine Negative Last Edit by Suad Becerril CMA on 08/27/23 15:01 Results Reviewed Results Reviewed: Laboratory Last Values Tst Clinic Negative 08/27/23 15:00 Assessment & Plan Assessment & Plan (1) Abnormal uterine bleeding: Code(s): N93.9 - Abnormal uterine and vaginal bleeding, unspecified Plan: EMB done, see procedure note Discussed with the patient the results of the work up done and options of treatment including control pills , Mirena IUD, cyclic Provera. All pros, cons, risks and benefits if each option was discussed with the patient and the patient decided to go ahead with [facility] so a more detailed discussion re: control pills including mechanism of action, benefits (regular menses, less dysmenorrhea, less risk of ovarian cancer, ...), risks ( DVT, PE, Strokes, [place], ? increased breast ca, others). Instructions were given not to smoke anymore cigarettes, the patient is willing to do that, to use a back- up method for contraception x 1st 2 weeks, and to schedule a 3 months appointment for blood pressure check. (2) IUD migration: Code(s): T83.32XA - Displacement of intrauterine contraceptive device, initial encounter Plan: IUD removed, see procedure note (3) Complex ovarian cyst: Code(s): N83.299 - Other ovarian cyst, unspecified side Plan: Discussed with the patient the finding on ultrasound showing complex ovarian mass, recommended pelvic MRI for further assessment. Instructions to schedule MRI of the pelvis and follow-up appointment in 2 weeks. Orders: Orders AMB Endometrial Biopsy Today N93.9 - Abnormal uterine and vaginal bleeding, unspecified AMB HCG Urine Test Today Z32.02 - Encounter for test, result negative MR pelvis wo/w con Today N83.299 - Other ovarian cyst, unspecified side Coding Level of Care Code Est Pt Level 3 (53101) Procedure Only Diagnoses Abnormal uterine bleeding N93.9 IUD migration T83.32XA Complex ovarian cyst N83.299 CPT Codes Endometrial Biopsy - CPT: 43502-Dmdfzcbysre Biopsy ([id number]) Details - CPT: 74415-JUE Removal ([id number])
[2023-08-27 14:58] VITALS: BP 110/68; BMI 23.5
== END 2023-08-27 15:49 | disposition home or self-care (01) ==
LOC: HO.HWS 14:40
PROVIDERS: Visit Provider Obstetrics & Gynecology
DX: N93.9 Abnormal uterine and vaginal bleeding, unspecified (principal); T83.32XA Displacement of intrauterine contraceptive device, initial encounter; N83.299 Other ovarian cyst, unspecified side; Z30.432 Encounter for removal of intrauterine contraceptive device; Z32.02 Encounter for pregnancy test, result negative
CPT/HCPCS: 58100; 58301; 99213

== ENCOUNTER 2023-09-17 08:43 | Outpatient (AMB) | payer BC, SELFPAY ==
[2023-09-17 08:45] VITALS: BP 110/72; BMI 24.5
--- NOTE | 2023-09-17 08:45 | A.OFFVIS_ITS ---
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 Doing well with no complaints. The pathology showed the following: Fragments of endometrial polyp; background fragments of endometrium with pseudodecidual change and breakdown; rare strips of benign endocervical epitheli um; mucoinflammatory material and organizing blood clot; no atypia identified [facility] Surgical History History of D&C Social History Household Members: Significant Other and Children Housing: House Alcohol intake: current Alcohol intake frequency: holidays/special occasions only Patient Tobacco Use Status: Current someday Tobacco user Cigarettes Per Day: 2 Current occupational status: employed 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 Sexual orientation: Straight/Heterosexual Gender identity: Female Female Reproductive History Menstrual Date of last menstrual period: 07/14/20 Total pregnancies: 2 Full term: 2 Review of Systems Card Reports as per HPI and Reports no additional complaints Resp Reports as per HPI and Reports no additional complaints GI Reports as per HPI and Reports no additional complaints Reports as per HPI Physical Exam Vital Signs: Last Vital Signs BP 110/72 09/17/23 08:45 BMI result Body Mass Index 24.5 Const General: cooperative, healthy appearing and comfortable Chest Chest palpation & inspection: normal inspection of the chest and normal palpation of entire chest wall Breast/axilla inspection: normal inspection of the breasts and normal inspection of the axillae Breast/axilla palpation: normal palpation of the breasts, normal palpation of the axillae and no axillary lymphadenopathy Resp Effort & Inspection: normal respiratory effort Auscultation: clear to auscultation bilaterally Percussion: percussion normal Cardio Palpation: normal PMI Rate: regular rate Rhythm: regular rhythm Heart sounds: no murmurs and no rubs Peripheral pulses: Peripheral pulses 2+ throughout GI Inspection: Yes normal to inspection Palpation (GI): Soft to palpation, nontender, no guarding, not rigid and No hepatosplenomegaly present Percussion: Yes normal to percussion Auscultation: normal bowel sounds Rectal Exam - Female: deferred Assessment & Plan Assessment & Plan (1) Abnormal uterine bleeding: Comment: Endometrial polyp on EMB pathology Code(s): N93.9 - Abnormal uterine and vaginal bleeding, unspecified Plan: Discussed with the patient is a the pathology showing Fragments of endometrial polyp ; recommended hysteroscopy D&C possible polypectomy/myomectomy. Discussed with the patient the procedure , all benefits and risks including but not limited to inability to complete the procedure , bleeding, infection, possible need for blood transfusion with all its risk ( HIV,syphilis, Hepatitis, anaphylaxis shock, others..), injury to bladder, rectum, possible need for laparoscopy/laparotomy or hysterectomy. The patient verbalized understanding and signed the consent. Instructions given the patient to schedule a 2 week postoperative appointment Coding Level of Care Code Est Pt Level 3 (21327) Diagnoses Abnormal uterine bleeding N93.9
== END 2023-09-17 09:22 | disposition home or self-care (01) ==
LOC: HO.HWS 08:43
PROVIDERS: Visit Provider Obstetrics & Gynecology
DX: N93.9 Abnormal uterine and vaginal bleeding, unspecified (principal)
CPT/HCPCS: 99213

== ENCOUNTER → 2023-09-17 08:43 | Outpatient (BNVA) | payer BC, SELFPAY | PROVIDERS: Visit Provider Obstetrics & Gynecology ==

== ENCOUNTER 2023-09-20 08:49 | Day surgery (SDC) | payer BC, SELFPAY ==
--- NOTE | 2023-09-19 08:51 | HO.ANESPROP2 ---
HPI - Anesthesia Eval Consult details Narrative: 38yo F for D&C Hysteroscopy,poss myomectomy,poss polypectomy, s/p suction D&C 01/2023 with GA-LMA 4 PMFSH Active Problems Active Problems: All Active Problems (Updated 09/17/23 @ 09:10 by Fidel Turcios MD) Complex ovarian cyst (Acute) IUD migration (Acute) Abnormal uterine bleeding (Acute) IUD strings lost (Acute) Well woman exam (Acute) IUD check up (Acute) Encounter for IUD insertion (Acute) Postop check (Acute) Incomplete (Acute) Surgical History Surgical History History of D&C Social History Social History Household Members: Significant Other and Children Housing: House Alcohol intake: current Alcohol intake frequency: holidays/special occasions only Patient Tobacco Use Status: Current someday Tobacco user Cigarettes Per Day: 2 Current occupational status: employed 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
[2023-09-20 09:30] VITALS: BP 136/66; PULSE 72; RESP 18; TEMP 36.7; O2SAT 96; BMI 25.9
--- NOTE | 2023-09-20 10:16 | MHC.SHP ---
Pre-Procedural Eval Section A Date of Service: 09/20/23 The patient is an INPATIENT: No Changes since office visit: No Cold of Flu in the past 2 weeks, No New Medical Problems, No Changes in Medication and No Patient answered all questions The History & Physical has been completed within 30 days and I have reviewed it.: Yes Section B Chief Complaint: Abnormal uterine and vaginal bleeding, unspecified Allergies: Allergies Allergy/AdvReac Type Severity Reaction Status Date / Time Seasonal Allergies AdvReac Mild Sneezing Verified 09/17/23 08:48 Plan Diagnosis/Plan: Unchanged I have reviewed the history and physical and performed a pertinent physical examination on my patient. No changes have occurred unless specified. Time Spent With Patient Time: Total time managing care of this patient today ____ minutes.
--- NOTE | 2023-09-20 10:21 | HO.ANESPROP2 ---
[facility] Active Problems Active Problems: All Active Problems (Updated 09/17/23 @ 09:10 by Fidel Turcios MD) Complex ovarian cyst (Acute) IUD migration (Acute) Abnormal uterine bleeding (Acute) IUD strings lost (Acute) Well woman exam (Acute) IUD check up (Acute) Encounter for IUD insertion (Acute) Postop check (Acute) Incomplete (Acute) Past Medical History Patient : No Family History Family history of problems with anesthesia: No Surgical History Surgical History History of D&C History of Problems with Anesthesia: No Social History Social History Household Members: Significant Other and Children Housing: House Alcohol intake: current Alcohol intake frequency: holidays/special occasions only Patient Tobacco Use Status: Current someday Tobacco user Tobacco use type: Cigarette Cigarettes Per Day: 2 Smoked in Last 30 Days: Yes Patient Interested in Nicotine Replacement: No Substance Use Frequency: Occasionally Are you DNR?: No Advance Directives: No Advance Directives Information Provided: Yes Nutrition Risks: No Nutritional Risk FDLMP: just ended Current occupational status: employed 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 Sexual orientation: Straight/Heterosexual Gender identity: Female Meds Allergies Allergy/AdvReac Type Severity Reaction Status Date / Time Seasonal Allergies AdvReac Mild Sneezing Verified 09/17/23 08:48 Active Medications: Current Medications Fentanyl (Fentanyl Citrate/Pf 100 Mcg/2 Ml Vial) 25 mcg IVPUSH Q5M PRN; Protocol PRN Reason: Pain, Moderate(Pain Scale 4-6) Lactated Ringer's (Lr) 1,000 mls @ 100 mls/hr IVCONT .Q10H LEBRON Last Admin: 09/20/23 09:35 Dose: 100 mls/hr Ondansetron HCl (Ondansetron Hcl 4 Mg/2 Ml Vial) 4 mg IVPUSH ONCE PRN PRN Reason: Nausea and Vomiting Exam Height,Weight and Vital Signs: Height 5 ft 4 in Weight 68.402 kg Last Vital Signs Temp 98.1 F 09/20/23 09:30 Pulse 72 09/20/23 09:30 Resp 18 09/20/23 09:30 BP 136/66 09/20/23 09:30 Pulse Ox 96 09/20/23 09:30 O2 Del Method Room Air 09/20/23 09:30 Pertinent Lab Results Pertinent Lab Results: Laboratory Tests 09/20/23 09:00 Urine Test NEGATIVE Airway Mallampati Class: II TM Dist: >3cm Loose/Missing/Broken Teeth: No Heart: rrr Lungs: clear Assessment and Plan Final Anesthetic Review Family History of Problems with Anesthesia: No History of Problems with Anesthesia: No NPO: Yes ASA Class: I Patient Risk: Low Procedure Risk: Low Anesthetic Plan Anesthetic Plan: GA Disposition: Standard PACU
--- NOTE | 2023-09-20 11:02 | PM.OP ---
Brief Operative Note Date of Service: 09/20/23 Pre-op diagnosis: Abnormal uterine bleeding with endometrial polyp on EMB pathology Post-op diagnosis: same (Endometrial polyp) Procedure: Hysteroscopy D&C, Polypectomy Surgeon: Fidel Turcios MD Anesthesia: GLMA Was an Forepart Rasper used for this Procedure?: No Estimated blood loss (mL): 0 Pathology: other (Endometrial Scrapping. Polyp) Condition: stable Disposition: PACU
--- NOTE | 2023-09-20 11:03 | W.PM.OPN ---
Operative Note Operative Note Date of Service: 09/20/23 Narrative: Preop Diagnosis: AUB with Endometrial polyp on EMB pathology Operation: Diagnostic Hysteroscopy, Dilataion & Curettage and polypectomy Post Op Diagnosis: Endometrial Polyp QBL: Minimal Anesthesia: GLMA Surgeon: Fidel Turcios MD Director Life: None Complication: None Pathology: Endometrial Scrapings, Endometrial polyp Procedure: The patient was put in the dorsal lithotomy position, scrubbed, and draped in the usual manner. A sterile speculum was inserted in the patient's vagina. The anterior lip of the cervix was grasped with a single tooth tenaculum. The cervix was dilated up to 5 mm, then the scope was inserted in the patient's uterus. Inspection revealed endometrial polyp. The Myosure Reach device was used; it was introduced through the operative channel and polypectomy done with no complications. The scope was then taken out from the uterine cavity, sharp curettings was carried on with minimal to moderate amount of tissues retrieved. At the end of the procedure, all instruments were taken out of the patient uterine and vaginal cavity. The single tooth tenaculum was removed and homeostasis was assured using pressure,. The patient tolerated the procedure well and was transferred to the PACU in a stable condition.
[2023-09-20 11:09] VITALS: BP 138/69; PULSE 81; RESP 15; TEMP 36.3; O2SAT 99
[2023-09-20 11:14] VITALS: BP 134/77; PULSE 74; RESP 16; O2SAT 99
[2023-09-20 11:19] VITALS: BP 125/71; PULSE 74; RESP 16; O2SAT 99
[2023-09-20 11:23] VITALS: BP 134/74; PULSE 71; RESP 16; O2SAT 99
[2023-09-20 11:39] VITALS: BP 119/72; PULSE 70; RESP 16; TEMP 36.1; O2SAT 99
== END 2023-09-20 11:54 | disposition home or self-care (01) ==
PROVIDERS: Visit Provider Obstetrics & Gynecology
PROC: 0UDB8ZZ Extraction of Endometrium, Via Natural or Artificial Opening Endoscopic (ICD-10-PCS; CPT 58558; principal; 2023-09-20 10:30)
DX: N93.9 Abnormal uterine and vaginal bleeding, unspecified (principal); N84.0 Polyp of corpus uteri; J30.2 Other seasonal allergic rhinitis; F17.210 Nicotine dependence, cigarettes, uncomplicated
CPT/HCPCS: 58558; 81025; 88305; J1100; J1885; J2250; J2405; J2704

== ENCOUNTER → 2023-09-20 08:49 | Outpatient (BNV) | payer BC, SELFPAY | PROVIDERS: Visit Provider Obstetrics & Gynecology | DX: N84.0 Polyp of corpus uteri (principal); N93.9 Abnormal uterine and vaginal bleeding, unspecified | CPT/HCPCS: 58558 ==

== ENCOUNTER 2023-09-26 09:01 | Outpatient (REF) | payer BC, SELFPAY ==
--- NOTE | ~2023-09-26 | MR_ITS ---
EXAMINATION: MRI PELVIS WITH AND WITHOUT CONTRAST CLINICAL INFORMATION: Reason for Exam N83.299 - Other ovarian cyst, unspecified side COMPARISON: Pelvic ultrasound 08/22/2023 TECHNIQUE: Multiple routine MRI sequences through the pelvis were obtained on a high-field 1.5 Evelin MRI before and after the uneventful administration of 7 mL of Gadavist gadolinium-based IV contrast. FINDINGS: UTERUS: The anteverted uterus is globular in configuration and enlarged measuring 12.0 x 8.6 x 9.9 cm. There is diffuse marked thickening of the junctional zone with ectopic endometrial glands and foci of T1 hyperintensity. Endometrial stripe measures 3 mm in thickness. CERVIX: Nabothian cyst. VAGINA: Unremarkable. RIGHT OVARY: The right ovary measures 4.4 x 2.9 x 3.2 cm with peripherally displaced follicles. LEFT OVARY: The left ovary measures 4.0 x 2.7 x 2.5 cm with peripherally displaced follicles. KIDNEYS: Two normally positioned kidneys are seen. No hydronephrosis. BLADDER: Decompressed. PELVIC FREE FLUID: No free fluid or ascites. LYMPH NODES: No pathologically enlarged lymph nodes. MR/MR pelvis wo/w con IMPRESSION: Uterine adenomyosis. Appearance of the ovaries can be seen in polycystic ovarian syndrome.
[2023-09-26] MEDS: gadobutroL 7.5 ML VIAL IVPUSH (10:01)
== END 2023-09-26 09:02 | disposition home or self-care (01) ==
LOC: HO.MRI 09:01
PROVIDERS: Visit Provider Obstetrics & Gynecology
DX: N83.299 Other ovarian cyst, unspecified side (principal)
CPT/HCPCS: 72197; A9585

== ENCOUNTER 2023-10-17 12:11 | Outpatient (AMB) | payer BC, SELFPAY ==
--- NOTE | 2023-10-17 12:17 | A.OFFVIS_ITS ---
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 The patient is doing well with no complaints. The pathology showed the following: A. Endometrium, polypectomy: Fragments of endometrial polyp; no atypia identified. B. Endometrium, curettage: Proliferative endometrium; no atypia or hyperplasia identified The following workup for AUB was done.: H&H= 10.1/35.5 TSH, hCG, prolactin, GC and chlamydia were negative. Endometrial biopsy pathology showed fragments of endometrial polyp with no evidence of hyperplasia and/or malignancy. Co testing was done was negative. Pelvic ultrasound showed the following: IMPRESSION: 1. IUD appears low in abutting the endo cervical junction rather than the endometrial fundus, which may compromise efficacy. 2. Enlarged and heterogeneous uterus wh ich could be seen in the setting of adenomyosis. 3. Possible indeterminant 1.5 cm hypoec hoic left ovarian mass with question of internal vascularity, incompletely evaluated. Recommend further evaluation with contrast-enhanced MR pelvis. Pelvic MRI showed the following: IMPRESSION: Uterine adenomyosis. Appearance of the ovaries can be seen in polycystic ovarian syndrome. 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 Sexual orientation: Straight/Heterosexual Gender identity: Female Female Reproductive History Menstrual Date of last menstrual period: 09/15/23 Review of Systems Const All systems reviewed & are unremarkable except as noted in HPI and below Reports as per HPI and Reports no additional complaints GI Reports no additional complaints Reports no additional complaints Physical Exam Vital Signs: Last Vital Signs BP 130/72 10/17/23 12:21 BMI result Body Mass Index 23.4 Assessment & Plan Assessment & Plan (1) Abnormal uterine bleeding: Comment: Endometrial polyp status post polypectomy Adenomyosis on MRI Code(s): N93.9 - Abnormal uterine and vaginal bleeding, unspecified Plan: Discussed with the patient the finding on MRI, the patient has been on continuous control pills since then no menstrual cycle abnormalities. All questions answered, the patient verbalized understand (2) Complex ovarian cyst: Comment: Resolved by MRI Code(s): N83.299 - Other ovarian cyst, unspecified side Plan: Discussed with the patient the finding on MRI, no evidence of ovarian mass, possible positive ovarian syndrome appearance, the patient does not have any history of hirsutism. Coding Level of Care Code Est Pt Level 3 (45757) Diagnoses Abnormal uterine bleeding N93.9 Complex ovarian cyst N83.299
[2023-10-17 12:21] VITALS: BP 130/72; BMI 23.4
== END 2023-10-17 12:55 | disposition home or self-care (01) ==
LOC: HO.HWS 12:11
PROVIDERS: Visit Provider Obstetrics & Gynecology
DX: N93.9 Abnormal uterine and vaginal bleeding, unspecified (principal); N83.299 Other ovarian cyst, unspecified side
CPT/HCPCS: 99213

== ENCOUNTER → 2023-10-17 12:11 | Outpatient (BNVA) | payer BC, SELFPAY | PROVIDERS: Visit Provider Obstetrics & Gynecology ==

== ENCOUNTER 2023-12-04 13:55 | Outpatient (AMB) | payer BC, SELFPAY ==
[2023-12-04 14:02] VITALS: BP 138/70; BMI 23.4
--- NOTE | 2023-12-04 14:02 | A.OFFVIS_ITS ---
Intake Vital Signs 12/04/23 14:02 12/04/23 14:33 Height 5 ft 6 in Weight 145 lb BMI 23.4 BP 138/70 158/70 H Intake Visit Reasons: 3 month follow up Allergies Seasonal Allergies Adverse Reaction (Mild, Verified 12/04/23 14:04) Sneezing Is last menstrual period known: Yes Last menstrual period: 11/10/23 HPI HPI Comments History of Present Illness Details Presenting 3 months after initiating continuous control pills, the patient had spotting and some cramping and heavy for menstrual cycle. 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 Sexual orientation: Straight/Heterosexual Gender identity: Female Female Reproductive History Menstrual Duration of menses: 6-7 days Date of last menstrual period: 11/10/23 control method: pills Review of Systems Const All systems reviewed & are unremarkable except as noted in HPI and below Reports as per HPI and Reports no additional complaints GI Reports no additional complaints Reports no additional complaints Physical Exam Vital Signs: Last Vital Signs BP 158/70 H 12/04/23 14:33 BMI result Body Mass Index 23.4 Assessment & Plan Assessment & Plan (1) Abnormal uterine bleeding: Comment: Endometrial polyp status post polypectomy Adenomyosis on MRI Code(s): N93.9 - Abnormal uterine and vaginal bleeding, unspecified Plan: Will check blood pressure tomorrow and decide whether to continue control pills continuously for 3 more months and re-evaluate if AUB is not better will treat accordingly. Instructions given the patient to schedule a 3 month follow- up appointment. All questions answered, the patient verbalized understanding (2) Hypertension: Code(s): I10 - Essential (primary) hypertension Plan: Discussed with the patient elevated blood pressure, possibility of control pills induced hypertension, will repeat blood pressure tomorrow if persistently elevated will consider discontinuing control pills and switched to a option of treatment. Instructions given the patient to schedule a follow-up appointment for blood pressure tomorrow. All questions answered, the patient verbalized understanding Medications: Refilled desogestrel-ethinyl estradiol 0.15-0.03 mg (Apri) 1 tab PO DAILY 84 days 84 tabs 0RF Coding Level of Care Code Est Pt Level 3 (33309) Diagnoses Abnormal uterine bleeding N93.9 Hypertension I10
[2023-12-04 14:33] VITALS: BP 158/70
== END 2023-12-04 14:35 | disposition home or self-care (01) ==
LOC: HO.HWS 13:55
PROVIDERS: Visit Provider Obstetrics & Gynecology
DX: N93.9 Abnormal uterine and vaginal bleeding, unspecified (principal); I10 Essential (primary) hypertension
CPT/HCPCS: 99213

== ENCOUNTER → 2023-12-04 13:55 | Outpatient (BNVA) | payer BC, SELFPAY | PROVIDERS: Visit Provider Obstetrics & Gynecology ==

== ENCOUNTER 2023-12-05 12:20 | Outpatient (AMB) | payer BC, SELFPAY ==
--- NOTE | 2023-12-05 12:22 | A.OFFVIS_ITS ---
Intake Vital Signs 12/05/23 12:30 12/05/23 12:47 BP 170/80 H 156/78 H Blood Pressure Location Lt brachial Position Sitting Intake Visit Reasons: BP check Information Interpreted: non-clinical & clinical Roller Checker: Roller Checker Present Accompanied by: Self / Same As Patient Allergies Seasonal Allergies Adverse Reaction (Mild, Verified 12/05/23 12:31) Sneezing HPI HPI Comments History of Present Illness Details Presenting for repeat blood pressure check 3 months post initiation on control pills cared blood pressure still elevated. 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 The following possible complications were discussed with the patient: Intrauterine , Ectopic , Sepsis, Pelvic Infection, Irregular Bleeding and Amenorrhea, Perforation, Expulsion, Ovarian Cysts, Breast Cancer, The following adverse effects were discussed with the patient: alteration of menstrual bleeding pattern, including: unscheduled uterine bleeding decreased uterine bleeding increased scheduled uterine bleeding female genital tract bleeding ,amenorrhea , genital discharge , vulvovaginitis , breast pain , benign ovarian cyst and associated complications , dysmenorrhea , Gastrointestinal disorders abdominal/pelvic pain, headache/migraine , back pain , acne , depression Alternative options were discussed with the patient including but not limited: control pills, patch, NuvaRing, Depo-medroxyprogesterone acetate, Nexplanon, copper IUD, sterilization, vasectomy, others The procedure was explained in detail to patient , at the end patient signed the informed consent obtained. A no touch technique was used throughout the procedure. A speculum was placed into vagina and cervix was cleaned with betadine). A tenaculum was placed. A plastic sound was advanced through the external and internal os until it reached the fundus of the uterus, the depth was 8 cm. The sound was then withdrawn. The IUD was loaded in a sterile manner and advanced into position. The string was visualized and cut to 3 cm. Tenaculum site hemostatic. All instruments removed from vagina. Patient tolerated the procedure well. NO complications were noted. Patient was instructed to call for fever over 100.4, significant pain unrelieved by Motrin, IUD expulsion, heavy bleeding, or abnormal discharge. In addition, the following clinical considerations were discussed with the patient to call for removal: A stroke or heart attack ,Very severe or migraine headaches ,Unexplained fever ,Yellowing of the skin or whites of the eyes, as these may be signs of serious liver problems , or suspected , Pelvic pain or pain during sex ,HIV positive seroconversion in herself or her partner , Possible exposure to sexually transmitted infections Unusual vaginal discharge or genital sores , severe vaginal bleeding or bleeding that lasts a long time, or if she misses a menstrual period, Inability to feel Mirena's threads Counseled the patient that the IUD does not protect against STI's, recommended use of condoms for the first 7 days post insertion and explained to the patient that condoms are recommended for patients at risk for sexually transmitted infections. In for the patient that Mirena IUD is FDA approved for 8 years for contraception for 5 years for the treatment of heavy menses Instructed the patient to schedule a Follow up appointment in 4 to 6 weeks following insertion. This note was generated with a voice recognition program. Some errors may have been overlooked during the review of this note. Sometimes these errors may affect the content or meaning of a given sentence. 13150-BWD Insertion Procedure code (CPT) selection complete Office Meds Mirena 21 mcg/24 hours (8 yrs) 52 mg intrauterine device Performing Provider: Fidel Turcios MD Performing Location: [facility]-Main [facility] Documented (not given) by: Fidel Turcios MD on 12/05/23 12:56 Dose Route Admin Location Dispensed Lot Number Expiration Date [facility] Superintendent Transportation 1 device intrauterine ea Assessment & Plan Assessment & Plan (1) Hypertension: Comment: control pill induced Code(s): I10 - Essential (primary) hypertension Plan: Instructions given the patient to discontinue control pills today. Discussed with the patient control pill induced hypertension, to schedule an appointment with PCP for further management (2) Abnormal uterine bleeding: Code(s): N93.9 - Abnormal uterine and vaginal bleeding, unspecified Plan: Discussed with the patient the results of the work up done and options of treatment including Lysteda, control pills, Mirena IUD, endometrial abl ation and hysterectomy. All pros, cons, risks and benefits if each option was discussed with the patient and the patient decided to go ahead with Mirena IUD so a more detailed discussion about it was conducted including mechanism of action, risks (uterine perforation, infection, injury to bladder, bowel, displacement, and others) benefits (hypo menorrhea, amenorrhea, ...). Mirena IUD inserted, see procedure note . All questions answered, the patient verbalized understanding (3) Encounter for IUD insertion: Code(s): Z30.430 - Encounter for insertion of intrauterine contraceptive device Plan: IUD inserted, see procedure note Orders: Orders AMB IUD Insertion/Removal - Practice Supplied Today Z30.430 - Encounter for insertion of intrauterine contraceptive device Medications: New Mirena (levonorgestrel) 1 device intrauterine ONCE 1 ea 0RF IUD insertion NS Z30.430 - Encounter for insertion of intrauterine contraceptive device Discontinued desogestrel-ethinyl estradiol 0.15-0.03 mg (Apri) Discontinued Reason: Doctor's Order 1 tab PO DAILY 84 tabs 0RF 84 days Coding Level of Care Code Est Pt Level 3 (27337) Procedure Only Diagnoses Hypertension I10 Abnormal uterine bleeding N93.9 Encounter for IUD insertion Z30.430 CPT Codes Details - CPT: 35201-TJA Insertion ([id number])
[2023-12-05 12:30] VITALS: BP 170/80
[2023-12-05 12:47] VITALS: BP 156/78
== END 2023-12-05 12:58 | disposition home or self-care (01) ==
LOC: HO.HWS 12:20
PROVIDERS: Visit Provider Obstetrics & Gynecology
DX: I10 Essential (primary) hypertension (principal); N93.9 Abnormal uterine and vaginal bleeding, unspecified; Z30.430 Encounter for insertion of intrauterine contraceptive device; Z32.02 Encounter for pregnancy test, result negative
CPT/HCPCS: 58300; 99213

== ENCOUNTER → 2023-12-05 12:20 | Outpatient (BNVA) | payer BC, SELFPAY | PROVIDERS: Visit Provider Obstetrics & Gynecology | DX: Z30.430 Encounter for insertion of intrauterine contraceptive device (principal); N93.9 Abnormal uterine and vaginal bleeding, unspecified | CPT/HCPCS: 58300; 81025; J7298 ==

== ENCOUNTER 2024-04-22 10:08 | Outpatient (AMB) | payer BC, SELFPAY ==
--- NOTE | 2024-04-22 10:26 | MHC.OFFVIS ---
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 The patient developed hypertension induced control pills which were discontinued and Mirena IUD inserted instead in 12/07. The patient has no complaints periods are not painful, and flow is light. 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 Sexual orientation: Straight/Heterosexual Gender identity: Female Review of Systems Const All systems reviewed & are unremarkable except as noted in HPI and below Physical Exam Vital Signs: BMI result Body Mass Index 23.1 General: Yes no CVA tenderness External Female Exam: normal external appearance and normal appearance of the urethra Speculum Exam - Vagina: normal appearance of the vagina, normal palpation, no lesions and no masses Speculum Exam - Cervix: normal appearance of the cervix, normal palpation, no lesions, no masses, nontender and Other cervical findings present (IUD thread in place) Bimanual exam- vagina & uterus: normal bimanual exam, normal palpation, uterine size normal, normal palpation, uterine shape normal, No Cervical tenderness present and non-tender Bimanual Exam- Adnexa, other: normal adnexae Back/Spine/Pelvis Back: no CVA tenderness Results AMB Test Urine AMB Test Urine Negative Last Edit by Suad Becerril CMA on 04/22/24 10:35 Assessment & Plan Assessment & Plan (1) IUD check up: Code(s): Z30.431 - Encounter for routine checking of intrauterine contraceptive device Category: Medical Plan: UPT done in the office was negative. Discussed with the patient the finding on physical exam, IUD string in place, the patient was reassured. Instructions given to patient to call in case of temperature above 100.4, severe cramping/pelvic pain, abnormal discharge or abnormal uterine bleeding or if she misses her menstrual cycle. Otherwise follow-up at her annual exam appointment. All questions answered, the patient verbalized understanding. (2) Hypertension: Code(s): I10 - Essential (primary) hypertension Category: Medical Plan: Explained to the patient that she has persistent hypertension, recommended to see her PCP for further manage, the patient has an appointment scheduled with her new PCP soon Orders: Orders AMB HCG Urine Test Today Z32.02 - Encounter for test, result negative Coding Level of Care Code Est Pt Level 3 (33191) Diagnoses IUD check up Z30.431 Hypertension I10
[2024-04-22 10:29] VITALS: BP 148/78; BMI 23.1
== END 2024-04-22 13:54 | disposition home or self-care (01) ==
PROVIDERS: Visit Provider Obstetrics & Gynecology
DX: Z30.431 Encounter for routine checking of intrauterine contraceptive device (principal); I10 Essential (primary) hypertension; Z32.02 Encounter for pregnancy test, result negative
CPT/HCPCS: 99213

== ENCOUNTER → 2024-04-22 10:09 | Outpatient (BNVA) | payer BC, SELFPAY | PROVIDERS: Visit Provider Obstetrics & Gynecology | DX: Z30.431 Encounter for routine checking of intrauterine contraceptive device (principal); I10 Essential (primary) hypertension | CPT/HCPCS: 81025 ==

== ENCOUNTER 2024-12-14 09:00 | Outpatient (REF) | payer BC, SELFPAY ==
[2024-12-15 07:44] LABS: Prolactin 10.1 ng/mL
[2024-12-18 14:39] LABS: Testosterone, Free 4.5 pg/mL (0.1-6.4); Testosterone, Total 21 ng/dL (2-45)
== END 2024-12-14 09:01 | disposition home or self-care (01) ==
LOC: HO.LAB 09:00
PROVIDERS: Visit Provider Obstetrics & Gynecology
DX: L68.0 Hirsutism (principal)
CPT/HCPCS: 36415; 83498; 84146; 84402; 84403; 84443

== ENCOUNTER 2024-12-14 09:00 | Outpatient (AMB) | payer BC, SELFPAY ==
[2024-12-14 09:03] VITALS: BP 146/80; BMI 23.2
--- NOTE | 2024-12-14 09:03 | MHC.OFFVIS ---
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 Menstrual cycles are regular and light on Mirena IUD, the patient is complaining of postprandial sleepiness and hair growth. 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 Sexual orientation: Straight/Heterosexual Gender identity: Female Female Reproductive History Menstrual control method: progestin IUCD (Mirena) Total pregnancies: 2 Full term: 1 Ab spontaneous: 1 Date of last pap smear: 08/06/23 (negagive pap smear, negative hpv ) Review of Systems Const All systems reviewed & are unremarkable except as noted in HPI and below Card Reports as per HPI Resp Reports as per HPI GI Reports as per HPI and Reports no additional complaints Reports as per HPI Physical Exam Vital Signs: Last Vital Signs BP 146/80 H 12/14/24 09:03 BMI result Body Mass Index 23.2 Const General: cooperative, healthy appearing and comfortable Chest Chest palpation & inspection: normal inspection of the chest and normal palpation of entire chest wall Breast/axilla inspection: normal inspection of the breasts and normal inspection of the axillae Breast/axilla palpation: normal palpation of the breasts, normal palpation of the axillae and no axillary lymphadenopathy Resp Effort & Inspection: normal respiratory effort Auscultation: clear to auscultation bilaterally Percussion: percussion normal Cardio Palpation: normal PMI Rate: regular rate Rhythm: regular rhythm Heart sounds: no murmurs and no rubs Peripheral pulses: Peripheral pulses 2+ throughout GI Inspection: Yes normal to inspection Palpation (GI): Soft to palpation, nontender, no guarding, not rigid and No hepatosplenomegaly present Percussion: Yes normal to percussion Auscultation: normal bowel sounds Rectal Exam - Female: deferred General: Yes bladder normal to palpation External Female Exam: No lesion Speculum Exam - Vagina: normal appearance of the vagina, normal palpation, normal vaginal discharge and not erythematous Speculum Exam - Cervix: normal appearance of the cervix and normal palpation Bimanual exam- vagina & uterus: normal bimanual exam, normal palpation, uterine size normal, bladder normal to palpation, consistency normal and normal palpation Bimanual Exam- Adnexa, other: normal adnexae, no masses and no tenderness Assessment & Plan Assessment & Plan (1) Well woman exam: Code(s): Z01.419 - Encounter for gynecological examination (general) (routine) without abnormal findings Category: Medical Plan: Cotesting not indicated this year. Mammogram ordered. Counseled the patient about the recommended dietary allowance of 1000 mg of Calcium & 600 IU of vitamin D. The patient was instructed to perform monthly self-breast exams and to schedule an annual exam in a year; All questions answered and the patient verbalized understanding. Instructed the patient to schedule annual exam in a year (2) Hirsutism: Code(s): L68.0 - Hirsutism Category: Medical Plan: Will order 17 hydroxyprogesterone, total and free testosterone skip pelvic ultrasound since MRI was done 2 months ago showing PCOS ovarian appearance. Instructions given the patient to schedule a follow-up appointment in 2 weeks. All questions answered, the patient verbalized understanding Orders: Orders Thyroid Stimulating Hormone Today L68.0 - Hirsutism Prolactin Today L68.0 - Hirsutism 17 Hydroxyprogesterone Today L68.0 - Hirsutism MM tomosynthesis screening BI Today Z12.31 - Encounter for screening mammogram for malignant neoplasm of breast Testosterone, Free/Total Today L68.0 - Hirsutism Coding Level of Care Code Est Pt Prev Care 40-64y(69800) Diagnoses Well woman exam Z01.419 Hirsutism L68.0
== END 2024-12-14 09:44 | disposition home or self-care (01) ==
LOC: HO.HWS 09:01
PROVIDERS: Visit Provider Obstetrics & Gynecology
DX: Z01.419 Encounter for gynecological examination (general) (routine) without abnormal findings (principal); L68.0 Hirsutism
CPT/HCPCS: 99396; 99459

== ENCOUNTER 2024-12-30 08:23 | Outpatient (REF) | payer BC, SELFPAY ==
[2024-12-30 20:39] LABS: Free T4 (Free Thyroxine) 1.07 ng/dL (0.71-1.85)
[2024-12-31 05:31] LABS: Triiodothyronine T3 Free 4.2 pg/mL (2.3-4.2)
== END 2024-12-30 08:24 | disposition home or self-care (01) ==
LOC: HO.LAB 08:23
PROVIDERS: PCP Internal Medicine; Visit Provider Obstetrics & Gynecology
DX: R79.89 Other specified abnormal findings of blood chemistry (principal); E28.2 Polycystic ovarian syndrome
CPT/HCPCS: 36415; 84439; 84481

== ENCOUNTER 2024-12-30 08:23 | Outpatient (AMB) | payer BC, SELFPAY ==
--- NOTE | 2024-12-30 08:57 | MHC.OFFVIS ---
Vital Signs 12/30/24 08:58 Height 5 ft 6 in Weight 144 lb BMI 23.2 Intake Visit Reasons: blood work results/ok per Dr. 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 Sexual orientation: Straight/Heterosexual Gender identity: Female Review of Systems Const All systems reviewed & are unremarkable except as noted in HPI and below Reports as per HPI and Reports no additional complaints GI Reports no additional complaints Reports no additional complaints Physical Exam Vital Signs: BMI result Body Mass Index 23.2 Assessment & Plan Assessment & Plan (1) Abnormal TSH: Code(s): R79.89 - Other specified abnormal findings of blood chemistry Category: Medical Plan: Discussed with the patient the low TSH, free T3 free T4 were ordered, the patient was instructed to call her PCP for further management. All questions answered, the patient verbalized understanding (2) PCOS (polycystic ovarian syndrome): Code(s): E28.2 - Polycystic ovarian syndrome Category: Medical Plan: Discussed with the patient the results of her blood work included TSH, testosterone, 17 hydroxyprogesterone . Explained to the patient that she has a diagnosis of PCOS. D/w the patient the association of PCOS with an increase in the risk of diabetes or pre diabetes, heart disease, hypercholesterolemia and metabolic syndrome, endometrial hyperplasia and/or cancer if untreated and an increase in the risk of breast cancer. Recommended for the patient the following: -To call her pcp to screen for cardiovascular risk and diabetes with FBS and 2 hr GTT after 75 g OGTT, in addition to cholesterol, lipids, HDL and LDL. -Instructions given to patient to increase exercise combined with dietary changes reduce the risk of diabetes, explained to the patient that reduction in body weight has been associated with improved rate and decreased hirsutism as well as improvement in glucose tolerance and lipid levels -For her Menstrual cycle control: Discussed with the patient the following options of treatment : Combination low-dose hormonal contraceptives are recommended as the primary treatment for menstrual disorder Or Progestins: Cyclic progesterone versus Mirena IUD No studies have addressed the long-term use of depot medroxyprogesterone acetate and intermittent oral medroxyprogesterone acetate to treat hirsutism. The regimen of cyclic oral progestin therapy or progestin-containing intrauterine devices that most effectively prevent endometrial cancer in women with PCOS is unknown. Progestin-only contraceptives or progestin-containing intrauterine devices are an alternative for endometrial protection, but they are associated with abnormal bleeding patterns in 50?89% of users After discussion all the pros and cons risks benefits of each were discussed with the patient, the patient decided to proceed stay with Mirena IUD -Treatment of Hirsutism offered the patient referral to [facility] in case she is interested in treatment for hirsutism. The patient decided to defer the treatment at the time being. Orders: Orders Free T4 (Free Thyroxine) Today R79.89 - Other specified abnormal findings of blood chemistry Triiodothyronine T3 Free Today R79.89 - Other specified abnormal findings of blood chemistry Coding Level of Care Code Est Pt Level 3 (04418) Diagnoses Abnormal TSH R79.89 PCOS (polycystic ovarian syndrome) E28.2
[2024-12-30 08:58] VITALS: BMI 23.2
== END 2024-12-30 09:23 | disposition home or self-care (01) ==
LOC: HO.HWS 08:24
PROVIDERS: PCP Internal Medicine; Visit Provider Obstetrics & Gynecology
DX: R79.89 Other specified abnormal findings of blood chemistry (principal); E28.2 Polycystic ovarian syndrome
CPT/HCPCS: 99213